=== PATIENT | male | born 1970 | race Caucasian/White ===

== ENCOUNTER 2022-09-10 07:37 | Day surgery (SDC) | payer MEDICAID ==
[~2022-09-10] VITALS: Ht 167.6 cm; Wt 95.3 kg
[2022-09-10] MEDS ORDERED: MEPERIDINE 50 MG/ML VIAL ONE (09:14)
[2022-09-10] MEDS: MIDAZOLAM HCL 5 MG/5 ML VIAL ONE ×3 (09:14→09:19)
[2022-09-10 10:39] VITALS: BP_SYST 117
== END 2022-09-10 10:25 | disposition home or self-care (01) ==
LOC: SDS 07:37 → SMU 07:39 → SDS 10:25
PROVIDERS: ATTEND Internal Medicine Gastroenterology
DX: K52.9 Noninfective gastroenteritis and colitis, unspecified (principal); K64.8 Other hemorrhoids; I10 Essential (primary) hypertension; E78.5 Hyperlipidemia, unspecified; Z20.822 Contact with and (suspected) exposure to COVID-19; Z79.899 Other long term (current) drug therapy; Z86.73 Personal history of transient ischemic attack (TIA), and cerebral infarction without residual deficits
CPT/HCPCS: 45380; 87426; 36415; 88305; 99152; 99153; G0378; J2250; J2175